=== PATIENT | male | born 2000 | race Two or more races ===

== ENCOUNTER 2025-01-14 05:16 | Emergency (ER) | payer MEDICAID, SELFPAY ==
--- NOTE | 2025-01-14 05:29 | EKG_ITS ---
[facility] Test Date: 2025-01-14 Pat Name: MERLIN KILGORE Department: Room: - Gender: Male Staff Radiation Therapist: : [id number] Requested By: Cuong Burton Order Number: [id number] Reading MD: Cuong Burton Measurements Intervals [place] Rate: 87 P: 52 MT: 154 QRS: 57 QRSD: 94 T: 31 QT: 324 QTc: 391 Interpretive Statements SINUS RHYTHM WITH SINUS ARRHYTHMIA EARLY REPOLARIZATION [ST ELEVATION WITH NORMALLY INFLECTED T-WAVE] No previous ECG available for comparison /[id number]/[id number]
[2025-01-14 05:34] VITALS: BP 130/83; PULSE 76; RESP 17; TEMP 36.7; O2SAT 96
--- NOTE | 2025-01-14 05:49 | XR_ITS ---
EXAMINATION: PA chest single view TECHNIQUE: Upright PA chest single view Date and time: January 14, 2025, 0555 hours INDICATIONS: Shortness of breath dizziness today. FINDINGS: Normal heart size No aspiration pneumonia. No pulmonary edema. Osseous structures are intact IMPRESSION: No active disease
--- NOTE | 2025-01-14 05:50 | PD.EDRME ---
Rapid Medical Screening Exam RME Arrival date/time: 01/14/25 05:16 24M with no significant PMH presents to ED with 2 days of CP and SOB. Patient denies URI symptoms and alcohol/drug use (he is currently in [employer]). This happened once about a year ago with no diagnosis. Chief Complaint: General Adult/Misc Complain Vital signs: Vital Signs Temperature 98.1 F 01/14/25 05:34 Pulse Rate 76 01/14/25 05:34 Respiratory Rate 17 01/14/25 05:34 Blood Pressure 130/83 01/14/25 05:34 Pulse Oximetry (%) 96 01/14/25 05:34 Oxygen Delivery Method Room Air 01/14/25 05:34 Exam: Clear lungs. Normal WOB. RRR. Chest wall tenderness Clinical Impression: costochondritis vs PE vs anxiety vs ACS
[2025-01-14 06:22] LABS: Amphetamine/Methamp Scrn,U Negative (Negative); Barbiturate Screen,Urine Negative (Negative); Benzodiazepines Screen,Urine Negative (Negative); Benzoylecgonine Screen, Ur Negative (Negative); Fentanyl Screen,Urine Negative (Negative); Opiate Screen,Urine Negative (Negative); THC Screen,Urine Negative (Negative)
--- NOTE | 2025-01-14 07:03 | PD.EDADULT ---
ED General RME/HPI General Chief complaint: General Adult/Misc Complain Stated complaint: EPIGASTRIC/CHEST PAIN,SOB, DIZZY Time Seen by Provider: 01/14/25 06:06 Arrival date/time: 01/14/25 05:16 Limitations: no limitations RME / HPI Onset (ago): day(s) Location: chest Radiation: non-radiation Quality: aching Consistency: intermittent Relieving factors: none Associated symptoms: shortness of breath Treatments prior to arrival: none RME / HPI narrative: 01/14/25 05:16 24M with no significant PMH presents to ED with 2 days of CP and SOB. Patient denies URI symptoms and alcohol/drug use (he is currently in [employer]). This happened once about a year ago with no diagnosis. 24-year-old male with no significant past medical history with intermittent chest pain and shortness of breath denies alcohol use or drug use. No history of kidney stones or gallstones. Denies history of anxiety. hx of similar episode in past. Does not think he is anxious about [employer]. Exam: Clear lungs. Normal WOB. RRR. Chest wall tenderness Impression: costochondritis vs PE vs anxiety vs ACS Related Data Previous Rx's ?Medication ?Instructions ?Recorded ibuprofen 800 mg tablet 800 mg PO TID PRN pain #30 tabs 06/13/21 cyclobenzaprine 5 mg tablet 5 mg PO Q8H #14 tabs 02/13/23 ibuprofen 800 mg tablet (IBU) 800 mg PO Q8H #20 tabs 02/13/23 hydroxyzine HCl 10 mg tablet 10 mg PO TID PRN itching #30 tabs 01/14/25 Allergies Allergy/AdvReac Type Severity Reaction Status Date / Time No Known Allergies Allergy Verified 01/14/25 05:17 Review of Systems Review of Systems Systems Reviewed: All systems reviewed, normal except as documented Constitutional Constitutional: Denies fever(s) Cardiovascular Cardiovascular: Reports as per HPI ED Exam General Limitations: Present no limitations General appearance: Present alert and in no apparent distress Head Head exam: Present atraumatic Eye Eye exam: Present normal appearance, PERRL and EOMI ENT ENT exam: Present normal exam, normal oropharynx and mucous membranes moist Neck Neck exam: Present normal inspection, full ROM and trachea midline Chest Chest inspection: Present normal inspection and symmetric chest wall rise Respiratory Respiratory exam: Present normal lung sounds bilaterally Cardiovascular Cardiovascular exam: Present regular rate, normal rhythm and normal heart sounds Abdominal Exam Abdominal exam: Present soft and normal bowel sounds Extremities Exam Extremities exam: Present normal inspection and full ROM Back Exam Back exam: Present normal inspection and full ROM Neurological Exam Neurological exam: Present alert, oriented X3 and CN II-XII intact Psychiatric Psychiatric exam: Present normal affect and normal mood Skin Skin exam: Present warm, dry, intact and normal color Course Quality Measures none Orders Category Date Time Status EKG (ED ONLY) *Do not use* NOW Care 01/14/25 05:30 Completed EKG (ED Only) Stat Exams 01/14/25 05:29 Draft US gall bladder Stat Exams 01/14/25 07:04 Completed XR chest 1V portable Stat Exams 01/14/25 05:49 Completed CBC Stat Lab 01/14/25 06:53 Completed Comprehensive Metabolic Panel Stat Lab 01/14/25 06:53 Completed Drug Screen,Urine Stat Lab 01/14/25 06:04 Completed Drug Screen,Urine Stat Lab 01/14/25 06:04 Completed Lipase Stat Lab 01/14/25 06:53 Completed Troponin I Stat Lab 01/14/25 06:53 Completed UA [Urinalysis] Stat Lab 01/14/25 06:04 Completed Vital Signs Vital signs: Vital Signs Temperature 98.1 F 01/14/25 05:34 Pulse Rate 76 01/14/25 05:34 Respiratory Rate 17 01/14/25 05:34 Blood Pressure 130/83 01/14/25 05:34 Pulse Oximetry (%) 96 01/14/25 05:34 Oxygen Delivery Method Room Air 01/14/25 05:34 Discharge Plan Plan Patient Disposition: HOME (Self Care) Discharge Disposition comment: f./u in 2-3days Prescriptions/Referrals Prescriptions/Med Rec: New hydroxyzine HCl 10 mg tablet 10 mg PO TID PRN (Reason: itching) Qty: 30 0RF No Action ibuprofen 800 mg tablet 800 mg PO TID PRN (Reason: pain) Qty: 30 0RF cyclobenzaprine 5 mg tablet 5 mg PO Q8H Qty: 14 0RF ibuprofen [IBU] 800 mg tablet 800 mg PO Q8H Qty: 20 0RF Referrals: Felix Wilson PA-C [Primary Care Provider] - In 1 week Problem List Clinical Impression: Chest pain, Hematuria Patient/Caregiver Discharge Instructions Education Materials: ED Chest Pain, Noncardiac, ED Hematuria Print Language: Lithuanian Stand Alone Forms: Karla Award Info., Patient Portal Info Letter PA/AUDIT CONTROL CLERK Supervising Physician PA/HEIDI Supervising Physician: Dr. Buckner MDM Narrative MDM hospital course (for use when minimal MDM required): Chest pain with intermittent shortness of breath however negative cardiac workup negative workup for gallstones. Only hematuria which does not account for chest pain. Diagnosed with atypical chest pain advised follow-up with PCP return to ER symptoms worsen Clinical Information Provided by: patient Medical Records reviewed [facility] Meds/Rx considered, not ordered describe: Benzos were considered however likely to cause more problems than benefits EKG Interpretation EKG #1: EKG Interpretation: 05:32 01/14/25 NSR, 87bpm, no st segment changes, no prior for comparison Labs Lab(s) Interpretation(s): Normal CBC CMP drug testing normal EKG Imaging Imaging Interpretation(s): , Chest x-ray within normal limits Normal abdominal ultrasound Medication Administration(s) None Diagnosis Differential Diagnosis ED Complaint MDM: Chest pain versus ACS versus anxiety versus gallstones Diagnoses ruled out and/or further discussions: Atypical chest pain Hematuria
--- NOTE | 2025-01-14 07:04 | XR_ITS ---
Examination: Abdomen sonogram, Limited Date and time of exam: January 14, 2025, 0819 hours INDICATIONS: Right upper abdominal pain today Technique: Real-time desir scale transabdominal sonographic images of the upper abdomen obtained. Findings: Normal gallbladder Normal common bile duct 0.45 cm Pancreas obscured by bowel gas Liver normal size Normal hepatopetal portal venous flow Patent IVC IMPRESSION: Normal gallbladder
[2025-01-14 07:23] LABS: Basophils # (Auto) 0.1 Thou/mm3 (0.0-0.2); Basophils % (Auto) 1 % (0-2.5); Eosinophils # (Auto) 0.1 Thou/mm3 (0.0-0.5); Eosinophils % (Auto) 1 % (0-10); Hematocrit 46.2 % (41.0-53.0); Hemoglobin 15.8 g/dL (13.5-16.0); Immature Granulocytes Auto 0.03 Thou/mm3 (0.00-0.00); Lymphocytes # (Auto) 1.4 Thou/mm3 (1.0-4.8); Lymphocytes % (Auto) 21 % (10-50); Mean Corpuscular HGB Conc 34.2 g/dl (31.0-37.0); Mean Corpuscular Hemoglobin 27.7 pg (25.0-35.0); Mean Corpuscular Volume 81 fL (80-100); Monocytes # (Auto) 0.5 Thou/mm3 (0.0-0.8); Monocytes % (Auto) 8 % (0-12); Neutrophils # (Auto) 4.4 Thou/mm3 (1.8-7.7); Neutrophils % (Auto) 68 % (37-80); Nucleated Red Blood Cell # 0.00 Thou/mm3 (0.00-0.00); Nucleated Red Blood Cell % 0 /100 WBC (0); Platelet Count 227 Thou/mm3 (140-440); RDW Standard Deviation 37.5 fL (35.1-43.9); Red Blood Count 5.70 Miln/mm3 (4.50-5.90); White Blood Count 6.5 Thou/mm3 (3.8-10.6)
[2025-01-14 07:36] VITALS: BP 138/82; PULSE 66; RESP 18; TEMP 36.9; O2SAT 99
[2025-01-14 07:42] LABS: Alanine Aminotransferase 58 U/L (10-49); Albumin, Serum 4.9 gm/dL (3.5-5.0); Albumin/Globulin Ratio 1.9 (1.2-2.2); Alkaline Phosphatase 71 U/L (46-116); Anion Gap 9 (7-16); Aspartate Amino Transferase 32 U/L (0-34); BUN/Creatinine Ratio 9 Ratio (12-20); Bilirubin,Total 1.0 mg/dL (0.3-1.2); Blood Urea Nitrogen 7 mg/dL (9-23); Calcium 9.5 mg/dL (8.3-10.6); Calcium (Corrected) 9.5 mg/dL (8.5-10.1); Carbon Dioxide 25.6 mMol/L (20.0-31.0); Chloride 108 mMol/L (98-107); Creatinine (Component) 0.8 mg/dL (0.6-1.3); Estimated Creatinine Clearance 22.1 mL/min (>60); Globulin 2.6 gm/dL (2.3-3.5); Glucose 104 mg/dL (74-106); Lipase 27 U/L (12-53); Osmolality,Calculated 282 (275-295); Potassium 4.4 mMol/L (3.4-5.1); Sodium 143 mMol/L (136-145); Total Protein 7.5 gm/dL (5.7-8.2); Troponin I < 0.020 ng/mL (0.0-0.045); eGFR > 60 See Note
[2025-01-14 08:54] LABS: Collection Type, Urine Clean Catch; Squamous Epithelial Cell,Urine 0 /hpf (0-5)
[2025-01-14 08:59] LABS: Bilirubin,Urine Negative (Negative); Blood,Urine Trace (Negative); Clarity,Urine Clear (Clear/Hazy); Color,Urine Yellow (Lt Yel-Yel); Glucose, Urine Negative (Negative); Ketones,Urine Negative (Negative); Leukocyte Esterase,Urine Negative (Negative); Nitrite,Urine Negative (Negative); PH,Urine 6.0 (5.0-7.0); Protein,Urine 1+ (Neg - Trace); RBC,Urine 2 /hpf (0-3); Specific Gravity,Urine 1.033 (1.001-1.035); Urobilinogen,Urine Negative mg/dL (0.0-1.0); WBC,Urine 3 /hpf (0-5)
[2025-01-14 09:11] LABS: Amphetamine/Methamp Scrn,U Negative (Negative); Barbiturate Screen,Urine Negative (Negative); Benzodiazepines Screen,Urine Negative (Negative); Benzoylecgonine Screen, Ur Negative (Negative); Fentanyl Screen,Urine Negative (Negative); Opiate Screen,Urine Negative (Negative); THC Screen,Urine Negative (Negative)
[2025-01-14 09:44] VITALS: BP 142/78; PULSE 65; RESP 18; TEMP 36.7; O2SAT 98
== END 2025-01-14 10:31 | disposition home or self-care (01) ==
PROVIDERS: Physician Assistant; Emergency Provider Emergency Medicine; PCP Physician Assistant
DX: R07.89 Other chest pain (principal); R31.9 Hematuria, unspecified; R06.02 Shortness of breath; R42 Dizziness and giddiness; R10.11 Right upper quadrant pain; I49.8 Other specified cardiac arrhythmias
CPT/HCPCS: 36415; 71045; 76705; 80053; 80307; 81001; 83690; 84484; 85025; 93005; 99283